=== PATIENT | male | born 1985 | race Two or more races ===

== ENCOUNTER 2025-06-07 00:05 | Inpatient (IN) | payer MEDICAID, OTHER ==
[~2025-06-07] VITALS: Ht 162.6 cm; Wt 65.8 kg
[2025-06-07] MEDS: LORazepam 2 MG/ML VIAL IM ONE (00:36)
[2025-06-07 00:44] LABS: COVID AG,FIA SOURCE NASAL SWAB
[2025-06-07 00:50] LABS: WHITE BLOOD COUNT (AUTO) 9.4 K/uL (4.5-11.0)
[2025-06-07 00:55] LABS: CALCIUM, TOTAL 8.9 mg/dL (8.8-10.5); CREATININE 1.10 mg/dL (0.60-1.30); GLOMERULAR FILTR. RATE CALC > 60 mL/min (>60); GLUCOSE,RANDOM 170 mg/dL (70-110); SODIUM SERUM 141 mmol/L (136-145); UREA NITROGEN, BLOOD 11 mg/dL (7-18)
[2025-06-07 00:57] LABS: PLATELET COUNT (AUTO) 338 K/uL (150-450); RED BLOOD CELL COUNT(AUTO) 4.97 MIL/uL (4.50-5.90); RED CELL DISTRIBUTION WIDTH 13.0 % (11.5-14.5)
[2025-06-07 01:08] LABS: SARS-COV2 (COVID) ANTIGEN,FIA Negative (Negative)
[2025-06-07] MEDS: LIDOCAINE 1% 10 ML VIAL SQ ONE (05:20)
[2025-06-07] MEDS: BACITRACIN 0.9 GM PACKET OINTMENT TP ONE (06:01)
[2025-06-07] MEDS: PERTUSS(ACELL),DIPH,TET/PF 0.5 ML SYRINGE [ADULT] IM. ONE (06:02)
[2025-06-07] MEDS: POTASSIUM CHLORIDE 20 MEQ ER TABLET PO ONE (06:14)
[2025-06-07 06:30] LABS: APPEARANCE,URINE CLEAR (CLEAR); GLUCOSE, URINE (UA) TRACE mg/dL (NEGATIVE); LEUKOCYTE ESTERASE ,URINE NEGATIVE (NEGATIVE); NITRATE,URINE NEGATIVE (NEGATIVE); OCCULT BLOOD,URINE NEGATIVE (NEGATIVE); PH,URINE DRUG SCREEN 6.0 (5.0-8.0); SPECIFIC GRAVITIY, URINE 1.010 (1.003-1.030)
[2025-06-07 06:38] LABS: ALCOHOL, URINE DRUG SCREEN POSITIVE (NEGATIVE); AMPHET/METH SCREEN,URINE NEGATIVE (NEGATIVE); BARBITURATE SCREEN, URINE NEGATIVE (NEGATIVE); CANNABINOID SCREEN,URINE NEGATIVE (NEGATIVE); COCAINE SCREEN,URINE POSITIVE (NEGATIVE); METHADONE SCREEN, URINE NEGATIVE (NEGATIVE)
[2025-06-07 20:45] VITALS: O2SAT 99
[2025-06-08 00:05] VITALS: BP 124/92; PULSE 82; RESP 16; TEMP 98.5; O2SAT 98
[2025-06-08 08:14] VITALS: BP 136/88; PULSE 78; RESP 18; TEMP 98.1; O2SAT 98
[2025-06-08 08:16] LABS: PLATELET COUNT (AUTO) 295 K/uL (150-450); RED BLOOD CELL COUNT(AUTO) 5.15 MIL/uL (4.50-5.90); RED CELL DISTRIBUTION WIDTH 13.2 % (11.5-14.5); WHITE BLOOD COUNT (AUTO) 8.2 K/uL (4.5-11.0)
[2025-06-08 08:48] LABS: ASPARTATE AMINOTRANSFERASE 51 U/L (15-37); CALCIUM, TOTAL 8.7 mg/dL (8.8-10.5); CHOL/HDL RATIO 5.3 (4.2-7.3); CREATININE 0.54 mg/dL (0.60-1.30); GLOMERULAR FILTR. RATE CALC > 60 mL/min (>60); GLUCOSE,RANDOM 74 mg/dL (70-110); LDL CHOL (CALC.) 165 mg/dL (0-130); SODIUM SERUM 138 mmol/L (136-145); TOTAL PROTEIN, SERUM 6.8 g/dL (6.4-8.2); UREA NITROGEN, BLOOD 9 mg/dL (7-18)
[2025-06-08] MEDS ORDERED: BACITRACIN 28 GM OINTMENT TP PRN (09:30)
[2025-06-08] MEDS ORDERED: BENZOCAINE/MENTHOL [CEPACOL] LOZENGE PO PRN (09:30)
[2025-06-08] MEDS ORDERED: OMEPRAZOLE 20 MG CAPSULE PO PRN (09:30)
[2025-06-08] MEDS ORDERED: ONDANSETRON 4 MG TABLET PO PRN (09:30)
[2025-06-08] MEDS ORDERED: MAGNESIUM HYDROXIDE SUSPENSION 30 ML UDCUP PO PRN (09:30)
[2025-06-08] MEDS ORDERED: IBUPROFEN 600 MG TABLET PO PRN (09:30)
[2025-06-08] MEDS ORDERED: LOPERAMIDE HCL 2 MG CAPSULE PO PRN (09:30)
[2025-06-08] MEDS ORDERED: MAG HYDROX/ALUMINUM HYD/SIMETH ES 30 ML SUSPENSION UDCUP PO PRN (09:30)
[2025-06-08] MEDS ORDERED: ALBUTEROL SULFATE HFA 90 MCG/PUFF 8 GM INHALER IH PRN (09:30)
[2025-06-08] MEDS ORDERED: PETROLATUM,WHITE 28 GM JELLY TP PRN (09:30)
[2025-06-08] MEDS ORDERED: DOCUSATE SODIUM 100 MG CAPSULE PO PRN (09:30)
[2025-06-08] MEDS ORDERED: ACETAMINOPHEN 325 MG TABLET PO PRN (09:30)
[2025-06-08 20:30] VITALS: BP 129/86; PULSE 82; RESP 18; TEMP 98.2; O2SAT 98
[2025-06-08] MEDS: ZOLPIDEM TARTRATE 10 MG TABLET PO PRN (21:22)
[2025-06-09 08:10] VITALS: BP 128/85; PULSE 94; RESP 16; TEMP 97.5; O2SAT 97
[2025-06-09] MEDS: OMEGA-3/DHA/EPA/FISH OIL 1,000 MG CAPSULE PO SCH (09:44)
== END 2025-06-09 12:40 | disposition home or self-care (01) | DRG 751 ==
LOC: EMS 00:05 → B3A 20:11
PROVIDERS: ADMIT Psychiatry & Neurology Child & Adolescent Psychiatry; ATTEND Psychiatry & Neurology Child & Adolescent Psychiatry
PROC: GZ58ZZZ Individual Psychotherapy, Cognitive-Behavioral (ICD-10-PCS; principal; 2025-06-08)
PROC: GZ56ZZZ Individual Psychotherapy, Supportive (ICD-10-PCS; 2025-06-08)
DX: F33.2 Major depressive disorder, recurrent severe without psychotic features (principal); F10.90 Alcohol use, unspecified, uncomplicated; F14.10 Cocaine abuse, uncomplicated; F41.9 Anxiety disorder, unspecified; G47.00 Insomnia, unspecified; K59.00 Constipation, unspecified; Y90.8 Blood alcohol level of 240 mg/100 ml or more; R03.0 Elevated blood-pressure reading, without diagnosis of hypertension
CPT/HCPCS: 80048; 80053; 80061; 80307; 81003; 83036; 84436; 84443; 85025; 90715; G0480; J3490